=== PATIENT | male | born 1980 | race Native Hawaiian/Other Pacific Islander ===

== ENCOUNTER 2019-11-13 10:32 | Emergency (ER) | payer OTHER ==
--- NOTE | 2019-11-13 11:19 | ED Physician Documentation ---
PD HPI LOWER EXT INJURY - Stated complaint Stated Complaint: R CALF INJURY - Chief complaint Chief Complaint: Ext Problem - History obtained from History obtained from: Patient - History of Present Illness PD HPI LOW EXT INJURY LOCATION: Right, Calf Type of injury: Twist (he was playing volleyball and landed onto another player, causing twist of his leg as he landed. Pain in posterolateral upper calf area.) Where injury occurred: Other (playing volleyball) Timing - onset: Last night Worsened by: Moving, Palpating, Other (turning on foot) Associated symptoms: Swelling. No: Weakness, Numbness Similar symptoms before: Has not had sx before Review of Systems Skin: denies: Abrasion (s), Laceration (s) Musculoskeletal: reports: Extremity pain (right upper calf) Neurologic: denies: Focal weakness, Numbness PD PAST MEDICAL HISTORY - Past Medical History Cardiovascular: None Respiratory: None Neuro: None Endocrine/Autoimmune: None - Present Medications Home Medications: Ambulatory Orders Medication Instructions Recorded Confirmed Hydrocodone/Acetaminophen [Lutz 1 each PO Q6H PRN #15 tablet 11/13/19 5-325 Tablet] Ibuprofen [Motrin] 600 mg PO TID PRN #25 tab 11/13/19 - Allergies Allergies/Adverse Reactions: Allergies Allergy/AdvReac Type Severity Reaction Status Date / Time No Known Drug Allergies Allergy Verified 11/13/19 10:40 PD ED PE NORMAL - Vitals Vital signs reviewed: Yes - General General: Alert and oriented X 3, No acute distress, Well developed/nourished - Derm Derm: Normal color, Warm and dry - Extremities Extremities: Other (right upper lateral calf and fibular area with focal tenderness and swelling. ) - Neuro Neuro: No motor deficit, No sensory deficit Results - Vitals Vitals: Oxygen O2 Source Room air - Rads (name of study) tib/fib Radiology: Prelim report reviewed (proximal fibular fracture. ), See rad report PD MEDICAL DECISION MAKING - ED course Complexity details: reviewed results, considered differential, d/w patient Departure - Departure Disposition: 01 Home, Self Care Clinical Impression: Fracture of proximal end of fibula Qualifiers: Encounter type: initial encounter Fracture type: closed Fracture morphology: other fracture Laterality: right Qualified Code(s): S82.831A - Other fracture of upper and lower end of right fibula, initial encounter for closed fracture Condition: Stable Record reviewed to determine appropriate education?: Yes Instructions: ED Fx Lower Ext Follow-Up: MIGUEL CRUZ DO [Primary Care Provider] - Prescriptions: Hydrocodone/Acetaminophen [Lutz 5-325 Tablet] 1 each PO Q6H PRN #15 tablet PRN Reason: Pain Ibuprofen [Motrin] 600 mg PO TID PRN #25 tab PRN Reason: Pain Comments: Use the knee brace when up and around for at least the next couple of weeks until follow-up with your primary care or orthopedics. Crutches to be reduce pain and pressure on the leg. Partial weightbearing is okay with this type of fracture provided your knee is braced. Elevate and rest and ice your leg often to reduce swelling. Ibuprofen anti-inflammatory twice daily or 3 times daily. Add Tylenol or hydrocodone if needed for pains. Follow-up with your primary care or orthopedics in about a week, call Friday for an appointment. They want a follow the progress of this that is healing up adequately along the way. You will likely be with a knee brace and no sports or physical training for about 4 to 6 weeks but follow the advice of the follow-up physicians. Forms: Activity restrictions Discharge Date/Time: 11/13/19 13:17
[2019-11-13] MEDS ORDERED: IBUPROFEN 600 MG TABLET PO STA (11:55)
[2019-11-13] MEDS ORDERED: ACETAMINOPHEN 325 MG TABLET PO STA (11:55)
--- NOTE | 2019-11-13 12:27 | XRAY Report ---
Reason: upper calf pain/injury Procedure Date: 11/13/2019 Accession Number: [id number] / [id number] Procedure: XR - Tib/Fib RT CPT Code: Final Report FULL RESULT: EXAM: RIGHT TIBIA/FIBULA RADIOGRAPHY EXAM DATE: 11/13/2019 12:07 PM. CLINICAL HISTORY: Upper calf pain/injury. COMPARISON: None. TECHNIQUE: 2 views. FINDINGS: Bones: Nondisplaced proximal fibular metaphysis fracture. Joints: The visualized knee and ankle joints are normal. No effusions. Soft Tissues: Normal. No soft tissue swelling. IMPRESSION: Nondisplaced proximal fibular metaphysis fracture RADIA
[2019-11-13 13:10] VITALS: BP 125/69
== END 2019-11-13 13:17 | disposition home or self-care (01) ==
LOC: ED 10:32
DX: S82.831A Other fracture of upper and lower end of right fibula, initial encounter for closed fracture (principal); W03.XXXA Other fall on same level due to collision with another person, initial encounter; Y93.68 Activity, volleyball (beach) (court); Y92.318 Other athletic court as the place of occurrence of the external cause
CPT/HCPCS: 73590; 99283; A9270

== ENCOUNTER 2019-12-02 11:31 | Outpatient (CLI) | payer OTHER ==
--- NOTE | 2019-12-02 14:32 | MRI Report ---
Reason: FRACTURE OF UPPER AND LOWER END OF RT FIBULA Procedure Date: 12/02/2019 Accession Number: [id number] / [id number] Procedure: MRI - Knee RT W/O CPT Code: Final Report FULL RESULT: EXAM: RIGHT KNEE MRI WITHOUT CONTRAST EXAM DATE: 12/02/2019 12:51 PM. CLINICAL HISTORY: Fracture of upper and lower end of right fibula. COMPARISON: Tib-fib radiographs 11/13/2019. TECHNIQUE: Multiplanar, multisequence T1-weighted and fluid-sensitive sequences of the knee without contrast. Other: None. FINDINGS: Bones: Mildly comminuted and impacted fracture proximal fibula with extension into the proximal tibiofibular joint. Mild impaction fracture in the adjacent posterior lateral margin proximal tibial metaphysis. Minimal reactive edema and cystic changes at the central trochlea. Articular Cartilage: Shallow partial-thickness loss and irregularity central aspect lateral femoral condyle and posterior aspect lateral tibial plateau. Shallow partial thickness tear lateral patellar facet. Small region deep partial thickness loss with fissuring/tearing at the central trochlea. Medial Meniscus: The medial meniscus is intact. Lateral Meniscus: The lateral meniscus is intact. Cruciate Ligaments: The anterior and posterior cruciate ligaments are intact. Collateral Ligaments: The medial collateral and lateral collateral ligamentous structures are intact. Tendons: Minimal proximal patellar tendinopathy. Quadriceps, popliteus, and semimembranosus tendons unremarkable. Musculature: No fatty atrophy. Mild edema throughout the musculature adjacent to the proximal fibula. Other: Small joint effusion. No popliteal cyst. No loose bodies. The medial and lateral retinacula are intact. Mild subcutaneous edema over the lateral aspect of the joint line and proximal lower leg. Minimal reactive edema in the anterior fat pads. IMPRESSION: 1. Mildly comminuted and impacted intra-articular fracture proximal fibula. 2. Mild impaction fracture posterior lateral tibial metaphysis. 3. Mild reactive edema and/or strains in the musculature adjacent to the proximal fibula. 4. Small knee joint effusion. 5. Menisci, cruciate ligaments, and collateral ligaments intact. 6. Mild to moderate cartilage loss, most prominent at the trochlea. RADIA
== END 2019-12-02 11:32 | disposition home or self-care (01) ==
LOC: DI 11:31
PROVIDERS: ATTEND Orthopaedic Surgery
DX: S82.831A Other fracture of upper and lower end of right fibula, initial encounter for closed fracture (principal); S82.191A Other fracture of upper end of right tibia, initial encounter for closed fracture; M25.461 Effusion, right knee